=== PATIENT | female | born 1990 | race Hispanic/Latino ===

== ENCOUNTER 2018-03-01 21:12 | Emergency (ER) | payer MEDICAID ==
[2018-03-01 23:01] LABS: Basophils # (Auto) 0.1 K/mm3 (0.0-0.1); Basophils % (Auto) 0.7 % (0.0-1.8); Eosinophils # (Auto) 0.3 K/mm3 (0.0-0.4); Eosinophils % (Auto) 2.4 % (0.0-4.3); Hematocrit 39.5 % (30.3-42.9); Hemoglobin 13.7 gm/dl (10.1-14.3); Lymphocytes # (Auto) 3.7 K/mm3 (1.2-5.4); Lymphocytes % (Auto) 35.1 % (13.4-35.0); Mean Corpuscular HGB Conc 35 % (30-34); Mean Corpuscular Hemoglobin 32 pg (28-32); Mean Corpuscular Volume 93 fl (79-97); Monocytes # (Auto) 0.9 K/mm3 (0.0-0.8); Monocytes % (Auto) 8.5 % (0.0-7.3); Platelet Count 285 K/mm3 (140-440); Red Blood Count 4.25 M/mm3 (3.65-5.03)
[2018-03-01 23:47] LABS: Alanine Aminotransferase 56 units/L (7-56); Albumin 4.1 g/dL (3.9-5); BUN/Creatinine Ratio 9; Blood Urea Nitrogen 6 mg/dL (7-17); Calcium 9.5 mg/dL (8.4-10.2); Hemolysis Index 41
[2018-03-02] MEDS ORDERED: KEPPRA 1,000 MG/NS 0.75% 100ML 1,000 MG/100 ML BAG IV ONE (01:52)
[2018-03-02] MEDS ORDERED: TORADOL IV ONE (02:47)
[2018-03-02] MEDS ORDERED: FLEXERIL PO ONE (02:47)
--- NOTE | 2018-03-02 02:52 | Emergency Department Report ---
HPI - General Chief Complaint: Seizure Time Seen by Provider: 03/02/18 01:51 - HPI HPI: Room 8 The patient is a 28-year-old female presented with the chief complaint of seizure. The patient states she was at home when she had 2 separate seizures. The patient's sensation that she had a seizure because she felt the same way she normally does after having a seizure which had. The patient states her headache resolved in the ED after receiving Keppra IV. The patient states her last seizure before today occurred a few years ago. The patient states she has been compliant with her Keppra. Patient now only complains of chronic back pain Location: [See above] Duration: [See above] Quality: [See above] Severity: Moderate Modifying factors: [see above] Context: [see above] Mode of transportation: [not driving] ED Past Medical Hx - Past Medical History Hx Arthritis: Yes Hx Seizures: Yes Hx Psychiatric Treatment: Yes (depression, bipolar disorder) Additional medical history: back pain - Surgical History Past Surgical History?: Yes Additional Surgical History: x 3 - Family History Family history: no significant - Social History Smoking Status: Current Every Day Smoker (3 packs per day. Smoking cessation discussed with patient) Substance Use Type: None (denies illicit drug use) - Medications Home Medications: Home Medications Medication Instructions Recorded Confirmed Last Taken Type levETIRAcetam [Keppra] 500 mg PO BID #60 tablet 10/09/13 Unknown Rx methOCARBAMOL [Robaxin] 500 mg PO BID #14 tab 10/09/13 Unknown Rx oxyCODONE /ACETAMINOPHEN [Percocet 1 tab PO Q6HR PRN #10 tablet 10/09/13 Unknown Rx 5/325 mg] Pnv95/Ferrous Fumarate/FA 1 each PO QDAY #30 tablet 11/09/13 Unknown Rx [ Vitamins] Amoxicillin [Trimox CAP] 500 mg PO Q8H #30 capsule 04/06/16 Unknown Rx Cyclobenzaprine [Flexeril] 10 mg PO TID PRN #10 tablet 03/02/18 Unknown Rx Ibuprofen [Motrin 800 MG tab] 800 mg PO Q8HR PRN #20 tablet 03/02/18 Unknown Rx ED Review of Systems ROS: Stated complaint: SEIZURE Other details as noted in HPI Constitutional: denies: fever Eyes: denies: eye pain ENT: denies: throat pain Cardiovascular: denies: chest pain Endocrine: denies: unexplained weight loss Gastrointestinal: denies: abdominal pain Genitourinary: denies: dysuria Musculoskeletal: back pain, myalgia Skin: denies: change in color Neurological: headache (resolved) Physical Exam - Physical Exam Vital Signs: Vital Signs 03/01/18 22:26 Temperature 98.5 F Pulse Rate 92 H Respiratory 14 Rate Blood Pressure 131/94 O2 Sat by Pulse 96 Oximetry Physical Exam: GENERAL: The patient is well-developed well-nourished female lying on stretcher not appearing to be in acute distress. [] HEENT: Normocephalic. Atraumatic. Extraocular motions are intact. Patient has moist mucous membranes. NECK: Supple. No meningitic signs are noted. There is no adenopathy noted. CHEST/LUNGS: Clear to auscultation. There is no respiratory distress noted. HEART/CARDIOVASCULAR: Regular. There is no tachycardia. There is no gallop rub or murmur. ABDOMEN: Abdomen is soft, nontender. Patient has normal bowel sounds. There is no abdominal distention. SKIN: There is no rash. There is no edema. There is no diaphoresis. NEURO: The patient is awake, alert, and oriented. The patient is cooperative. The patient has no focal neurologic deficits. The patient has normal speech. Cranial nerves II through XII grossly intact MUSCULOSKELETAL: There is no evidence of acute injury. ED Course Vital Signs 03/01/18 22:26 Temperature 98.5 F Pulse Rate 92 H Respiratory 14 Rate Blood Pressure 131/94 O2 Sat by Pulse 96 Oximetry ED Medical Decision Making - Lab Data Result diagrams: 03/01/18 22:46 03/01/18 22:46 Laboratory Tests 03/01/18 03/01/18 22:46 22:46 WBC 10.5 RBC 4.25 Hgb 13.7 Hct 39.5 MCV 93 MCH 32 MCHC 35 H RDW 14.0 Plt Count 285 Lymph % (Auto) 35.1 H Prentiss % (Auto) 8.5 H Eos % (Auto) 2.4 Baso % (Auto) 0.7 Lymph # 3.7 Prentiss # 0.9 H Eos # 0.3 Baso # 0.1 Seg Neutrophils % 53.3 Seg Neutrophils # 5.6 Sodium 140 Potassium 4.1 Chloride 104.0 Carbon Dioxide 23 Anion Gap 17 BUN 6 L Creatinine 0.7 Estimated GFR > 60 BUN/Creatinine Ratio 9 Glucose 88 Calcium 9.5 Total Bilirubin 0.30 AST 45 H ALT 56 Alkaline Phosphatase 105 Total Protein 7.2 Albumin 4.1 Albumin/Globulin Ratio 1.3 - Differential Diagnosis seizure, epilepsy Critical care attestation.: If time is entered above; I have spent that time in minutes in the direct care of this critically ill patient, excluding procedure time. ED Disposition Clinical Impression: Seizure, Chronic back pain Disposition: - TO HOME OR SELFCARE Is pt being admited?: No Does the pt Need Aspirin: No Condition: Stable Instructions: Epilepsy (ED) Additional Instructions: Return to the emergency department immediately should you develop worsening symptoms, fever, inability to tolerate food or liquid or any other concerns. Prescriptions: Cyclobenzaprine [Flexeril] 10 mg PO TID PRN #10 tablet PRN Reason: Muscle Spasm Ibuprofen [Motrin 800 MG tab] 800 mg PO Q8HR PRN #20 tablet PRN Reason: Pain, Moderate (4-6) Referrals: [facility] [Provider Group] - 3-5 Days [facility] [Provider Group] - 3-5 Days RONNIE SOLIS MD [Staff Physician] - 3-5 Days (Dr. Solis is a neurologist. Please follow-up with him for further evaluation/management of your seizures) BREEZY PHAN MD [Staff Physician] - 3-5 Days (Dr. Phan is an orthopedic surgeon. Please follow-up with him for further evaluation) Time of Disposition: 02:54
[2018-03-02 03:28] VITALS: BP 129/82
== END 2018-03-02 03:27 | disposition home or self-care (01) ==
LOC: ED 21:12
DX: R56.9 Unspecified convulsions (principal); M54.89 Other dorsalgia; G89.29 Other chronic pain; M19.90 Unspecified osteoarthritis, unspecified site; F17.200 Nicotine dependence, unspecified, uncomplicated; F31.9 Bipolar disorder, unspecified; Z88.6 Allergy status to analgesic agent; Z79.899 Other long term (current) drug therapy
CPT/HCPCS: 36415; 80053; 85025; 96374; 99284; J1953

== ENCOUNTER 2018-03-09 20:42 | Emergency (ER) | payer MEDICAID ==
[2018-03-09 21:03] VITALS: BP 122/80
== END 2018-03-09 21:00 | disposition left against medical advice (07) ==
LOC: ED 20:42
DX: M54.9 Dorsalgia, unspecified (principal); Z53.21 Procedure and treatment not carried out due to patient leaving prior to being seen by health care provider

== ENCOUNTER 2018-03-27 19:47 | Emergency (ER) | payer MEDICAID | END 2018-03-27 20:30 | disposition left against medical advice (07) | LOC: ED 19:47 | DX: K92.1 Melena (principal); Z53.21 Procedure and treatment not carried out due to patient leaving prior to being seen by health care provider ==

== ENCOUNTER 2018-11-01 05:51 | Day surgery (SDC) | payer MEDICAID ==
[~2018-11-01 05:51] MED LIST: LACTATED RINGERS 1,000 ML IV SCH
[2018-11-01] MEDS ORDERED: VERSED IV NR (06:00)
[2018-11-01] MEDS ORDERED: ANCEF/STERILE WATER 2 GM/20 ML 2 GM/20 ML SYRINGE IV NR (06:00)
[2018-11-01] MEDS ORDERED: NEURONTIN PO NR (06:00)
[2018-11-01] MEDS ORDERED: PROVENTIL IH NR (06:00)
[2018-11-01] MEDS ORDERED: TRANSDERM-SCOP TD ONE (07:19)
[2018-11-01] MEDS ORDERED: XYLOCAINE 0.5%/ EPI 1:200,000 INFILTRATI ONE (07:23)
[2018-11-01] MEDS ORDERED: NACL 0.9% 100 ML ONE (07:23)
[2018-11-01] MEDS ORDERED: MARCAINE 0.5% INFILTRATI ONE ×2 (07:23→07:58)
[2018-11-01] MEDS ORDERED: XYLOCAINE 1%/ EPI 1:100,000 INFILTRATI ONE ×2 (07:23→07:58)
[2018-11-01] MEDS ORDERED: SUBLIMAZE ONE ×2 (07:25→08:18)
[2018-11-01] MEDS ORDERED: DIPRIVAN 10 MG/ML IV ONE (07:25)
--- NOTE | 2018-11-01 07:39 | Short Stay Summary ---
Short Stay Documentation Date of service: 11/01/18 - History H&P: obtained from office - Allergies and Medications Current Medications: Allergies tramadol Allergy (Verified 10/25/18 15:15) Hives Home Medications Medication Instructions Recorded Confirmed Last Taken Type Cyclobenzaprine [Flexeril] 10 mg PO TID PRN 10/25/18 11/01/18 10/31/18 20:00 History Diazepam [Valium] 5 mg PO DAILY 10/25/18 11/01/18 10/31/18 09:00 History FLUoxetine [PROzac] 20 mg PO QDAY 10/25/18 11/01/18 10/31/18 09:00 History Losartan [Cozaar] 100 mg PO QDAY 10/25/18 11/01/18 10/31/18 09:00 History Promethazine [Phenergan TAB] 25 mg PO Q6HR PRN 10/25/18 11/01/18 10/25/18 09:00 History levETIRAcetam [Keppra TAB] 1,000 mg PO BID 10/25/18 11/01/18 11/01/18 04:00 History Active Medications Albuterol (Proventil) 2.5 mg IH PREOP NR Stop: 11/01/18 23:59 Last Admin: 11/01/18 07:07 Dose: 2.5 mg Documented by: Celecoxib (Celebrex) 200 mg PO PREOP NR Stop: 11/01/18 23:59 Last Admin: 11/01/18 07:05 Dose: 200 mg Documented by: Gabapentin (Neurontin) 300 mg PO PREOP NR Stop: 11/01/18 23:59 Last Admin: 11/01/18 07:05 Dose: 300 mg Documented by: Lactated Ringer's (Lactated Ringers) 1,000 mls @ 100 mls/hr IV DIRECT LAURIE Last Admin: 11/01/18 07:00 Dose: 100 mls/hr Documented by: Cefazolin Sodium (Ancef/Sterile Water 2 Gm/20 Ml) 2 gm in 20 mls @ 80 mls/hr IV PREOP NR; Protocol Stop: 11/01/18 23:59 Midazolam HCl (Versed) 2 mg IV PREOP NR Stop: 11/01/18 23:59 Last Admin: 11/01/18 07:24 Dose: 2 mg Documented by: - Physical exam General appearance: no acute distress Lungs: Normal air movement Neurological: Normal speech - Brief post op/procedure progress note Date of procedure: 11/01/18 (Dictation:[id number]) Pre-op diagnosis: Chronic Cholecystitis Post-op diagnosis: same Procedure: lap omer with IOC IVF 800cc Anesthesia: GETA Findings: normal IOC. Some adhesions between gallbladder and liver bed Surgeon: MARCOS GREEN Estimated blood loss: minimal (<20cc) Pathology: list (gallbladder) Specimen disposition: to lab Condition: stable - Hospital course Hospital course: uneventful - Disposition Condition at discharge: Stable Disposition: DC- TO HOME OR SELFCARE Short Stay Discharge Plan Activity: other (no driving until cleared by surgeon) Diet: regular Wound: open to air, keep clean and dry, other (Apply ice pack to wounds for 10-15min/4-5 times a day. May shower tomorrow. Pat dry wounds. ) Special Instructions: no heavy lifting (or strenuous activity for 6 weeks) Additional Instructions: ACTIVITY : NO DRIVING UNTIL CLEAR BY DR GREEN DIET : REGULAR. WOUND : KEEP CLEAN AND DRY : DO NOT COVER WITH BAND AID OR GAUZE. :ICEPACK TO SURGICAL SITES FOR 10 -15 MINS 4-5 TIMES PER DAY : MAY SHOWER IN THE MORNING.. PAT DRY APPOINTMENT DR GREEN WANTS TO SEE YOU IN 14 DAYS. CALL FOR APPOINTMENT AND FOR ANY QUESTIONS OR CONCERNS RELATED TO YOUR PROCEDURE. CALL DR WILSON'S OFFICE IF YOU HAVE ANY NON SURGICAL ISSUES. PRESCRIPTIO GIVEN AT DR GREEN'S OFFICE. TAKE DIRECTED. Follow up with: MIGUEL WILSON MD [Primary Care Provider] - 7 Days MARCOS GREEN MD [Staff Physician] - 14 Days Forms: Outpatient Surgery DC Inst. Prescriptions: HYDROcodone/ACETAMINOPHEN [[place] 5-325 Tablet] 1 each PO Q6H #30 tablet
[2018-11-01] MEDS ORDERED: NACL 0.9% IV ONE (07:58)
[2018-11-01] MEDS ORDERED: OMNIPAQUE 300 MG/50 ML (CATH LAB) IV ONE (08:10)
[2018-11-01] MEDS ORDERED: DILAUDID IV PRN (08:24)
--- NOTE | 2018-11-01 08:24 | Anesthesia Consultation ---
Anesthesia Consult and Med Hx Date of service: 11/01/18 - Airway Anesthetic Teeth Evaluation: Edentulous ROM Head & Neck: Adequate Mental/Hyoid Distance: Adequate Mallampati Class: Class II Intubation Access Assessment: Probably Good - Pulmonary Exam CTA: Yes - Cardiac Exam Cardiac Exam: RRR - Pre-Operative Health Status ASA Pre-Surgery Classification: ASA3 Proposed Anesthetic Plan: General - Pulmonary Hx Smoking: Yes (1PPD SINCE AGE 14) Hx Asthma: No Hx Respiratory Symptoms: Yes (chronic productive cough; no recent change in sputum production) - Cardiovascular System Hx Hypertension: Yes Hx Heart Attack/AMI: No Hx Percutaneous Transluminal Coronary Angioplasty (PTCA): No Hx Cardia Arrhythmia: No - Central Nervous System Hx Seizures: Yes (last seizure 09/2018; took anti-seziure medication today as scheduled) CVA: No Hx Back Pain: Yes (chronic low back pain) Hx Psychiatric Problems: Yes (bipolar depression) - Gastrointestinal Hx Gastroesophageal Reflux Disease: Yes (medication prn; asymptomatic today) - Endocrine Hx Renal Disease: No Hx Liver Disease: No Hx Insulin Dependent Diabetes: No Hx Non-Insulin Dependent Diabetes: No Hx Thyroid Disease: No - Other Systems Hx Alcohol Use: Yes (SOCIAL) Hx Substance Use: No Hx Cancer: No Hx Obesity: Yes - Additional Comments Anesthesia Medical History Comments: Hx PONV.
--- NOTE | 2018-11-01 08:24 | Anesthesia Day of Surgery ---
Anesthesia Day of Surgery - Day of Surgery Patient Examined: Yes Patient H&P Reviewed: Yes Patient is NPO: Yes
--- NOTE | 2018-11-01 09:21 | Fluoroscopy Report ---
FLUOROSCOPIC CHOLANGIOGRAM OPERATIVE INDICATION: Chronic cholecystitis COMPARISON: None similar. IMAGES/CINE CLIPS: 1 FINDINGS: Intraoperative fluoroscopic guidance provided for Dr. Logan during cholecystectomy with intraoperative cholangiogram. One submitted image suggests normal opacified biliary tree. CBD caliber estimated at 4 mm. Duodenal opacification also noted as also few iatrogenic devices. CONCLUSION: Intraoperative fluoroscopic guidance provided, as described. Please also correlate with procedure notes. Thank you for the opportunity to participate in this patient's care.
[2018-11-01 09:36] VITALS: BP 125/72
[2018-11-01] MEDS ORDERED: ZOFRAN IV ONE (09:41)
[2018-11-01] MEDS ORDERED: ZOFRAN ONE (09:42)
--- NOTE | 2018-11-01 12:57 | Post Anesthesia Evaluation ---
- Post Anesthesia Evaluation Patient Participated: Yes Airway Patent: Yes Stable Respiratory Function: Yes Nausea/Vomiting: No Temp > 96.8F: Yes Pain Manageable: Yes Adequeate Hydration: Yes Anesthesia Complications: No
--- NOTE | 2018-11-01 15:28 | Operative Report ---
PREOPERATIVE DIAGNOSIS: Cholelithiasis with chronic cholecystitis. POSTOPERATIVE DIAGNOSIS: Cholelithiasis with chronic cholecystitis. PROCEDURE: Laparoscopic cholecystectomy with intraoperative cholangiogram. ATTENDING SURGEON: Ned Logan MD ANESTHESIA: General. ESTIMATED BLOOD LOSS: Minimal. FLUIDS: 800 mL. FINDINGS: Fairly normal-appearing gallbladder with mild adhesions noted to the adjacent stomach as well as thicker adhesions noted to the gallbladder bed. Cholangiogram was normal. SPECIMENS: Gallbladder. DRAINS: None. COMPLICATIONS: None. DISPOSITION: Stable transport to Recovery Room. INDICATIONS: This is a 28-year-old female who presents to the office with complaints of right-sided abdominal pain since June. She was seen in the Emergency Department at that time and diagnosed with a tenth rib fracture as well as an incidental finding of a calcified gallstone. The patient reports persistent pain. She does not have any postprandial symptoms. However, she has a family history of gallbladder cancer in her mother and she is adamant that she wants her gallbladder out. We discussed further workup to see if truly the gallbladder was causing her pain as opposed to the tenth rib. I feel the tenth rib is the more likely cause; however, she felt that regardless of what the test would show, she wants her gallbladder removed. Procedure, risks, benefits were discussed with the patient. Risks included but were not limited to infection, bleeding, pain, injury to surrounding structures, possible need for further surgery, possible post-cholecystectomy syndrome. The patient understood and consented. We also discussed that she may have continued current pain postoperatively. DESCRIPTION OF PROCEDURE: The patient was brought to the operating room and placed on the table in supine position. After adequate general anesthesia was established, the patient was prepped and draped in the usual sterile fashion. Timeout was called. SCDs were in place. Antibiotics had been given. We began by placing a Veress needle in the left upper quadrant. It was able to insufflate in first attempt. A 5 mm port was placed in the right lateral location of the abdominal wall. We entered the peritoneal cavity safely using the Optiview technique. I could see that the Veress needle did not injure any structure underneath it. The Veress needle was removed . Under direct vision, we placed two additional 5 mm ports along the subcostal margin parallel to the edge and a 12 mm port at the umbilicus. We began by elevating the gallbladder over the liver edge. We took down the adhesions between the gallbladder and the stomach, and then we proceeded to dissect out the cystic duct, cystic artery in a critical view. One clip was placed proximally in the cystic duct in relation to the gallbladder. Cystic artery was partially divided. Cholangiogram catheter was inserted. Using full strength contrast, we performed a cholangiogram. We had good filling of the cystic duct. We had very easy filling of the common bile duct as well as the common hepatic duct with left and right branches. The contrast quickly emptied into the duodenum. It tapered smoothly. We saw no filling defects. It appeared to be completely normal. Official report is pending. Cholangiogram catheter was removed. Three clips were placed distally on cystic duct in relation to the gallbladder and then divided with the Harmonic scalpel. Cystic artery was divided with Harmonic the scalpel. Gallbladder was removed from the bed with the Harmonic scalpel. Gallbladder was removed, intact. There was no spillage. We placed the gallbladder in the EndoCatch bag, left hand side. We examined the dissection site. We had a very clean dissection. There was no evidence of any bleeding. All three clips were in place. There was no bile leakage. There was no bleeding from the cystic artery. Everything looked very good. The stomach itself looked atraumatic. There was no evidence of any injury there. We removed the EndoCatch bag from the umbilical port location, I did have to stretch it out. We then closed that site with the Maurisio-Christel fascial closure device using an 0 Vicryl stitch. We had a very good closure. We removed all the ports under direct vision. There was no bleeding at the port sites. Additional local was injected into all the port sites. Skin sites were closed with 4-0 Monocryl subcuticular stitch. The skin was cleaned and dried. Dermabond was placed. The patient tolerated the procedure well. There were no complications. All counts were correct at the end of the case. Originally, I did not write a narcotic pain prescription for the patient because she had a TRAMADOL ALLERGY with hives. The was not aware of which specific narcotics she could take. The patient later came to the office and said that she takes Freeport and Percocets without any problems. I confirmed that she does not have a reaction, she confirmed that and we gave her a prescription for Freeport. JOB# [id number] ALISSON/RACQUEL
== END 2018-11-01 11:00 | disposition home or self-care (01) ==
LOC: OR 05:51
PROVIDERS: ATTEND Surgery
DX: K80.10 Calculus of gallbladder with chronic cholecystitis without obstruction (principal); I10 Essential (primary) hypertension; K21.9 Gastro-esophageal reflux disease without esophagitis; M19.90 Unspecified osteoarthritis, unspecified site; F33.9 Major depressive disorder, recurrent, unspecified; F41.9 Anxiety disorder, unspecified; F17.210 Nicotine dependence, cigarettes, uncomplicated; E66.9 Obesity, unspecified; Z68.41 Body mass index [BMI] 40.0-44.9, adult; Z80.8 Family history of malignant neoplasm of other organs or systems; Z79.899 Other long term (current) drug therapy; Z98.891 History of uterine scar from previous surgery; Z72.89 Other problems related to lifestyle; Z80.1 Family history of malignant neoplasm of trachea, bronchus and lung; Z91.81 History of falling; Z88.8 Allergy status to other drugs, medicaments and biological substances
CPT/HCPCS: 47563; 74300; 81025; 88304; J0690; J1170; J2250; J2405; J2704; J3010; J7120; Q9967